=== PATIENT | female | born 1995 | race Caucasian/White ===

== ENCOUNTER 2017-03-27 17:44 | Emergency (ER) | payer MEDICAID ==
[~2017-03-27] VITALS: Ht 172.7 cm; Wt 101.6 kg
--- OUTSIDE RECORDS SUMMARY | 2017-03-27 18:00 | External Medical Summary Rpt | CCD ---
Author Author ASIF Address Unknown Phone Purpose Continuity of Care Document - through 2016
--- OUTSIDE RECORDS SUMMARY | 2017-03-27 18:01 | External Medical Summary Rpt | CCD ---
Demographics Preferred Language Croatian Marital Status Unknown Yazdanism Affiliation Unknown Race Unknown Ethnic Group Unknown Author Author , ASIF MUNOZ Address Unknown Phone Immunization No patient found.
--- OUTSIDE RECORDS SUMMARY | 2017-03-27 18:01 | External Medical Summary Rpt | CCD ---
Demographics Preferred Language Mongolian Marital Status Unknown Latter-Day Affiliation Unknown Race Unknown Ethnic Group Unknown Author Author , ASIF MUNOZ Address Unknown Phone Immunization No patient found.
[2017-03-27 18:09] LABS: URINE BILIRUBIN - DIPSTICK NEGATIVE (NEG); URINE BLOOD NEGATIVE (NEG)
[2017-03-27 18:21] LABS: HEMOGLOBIN 13.7 g/dL (12.2-16.2); LYMPH % 18.9 % (10-50.0)
[2017-03-27 18:42] LABS: AMPHETAMINES/METAMPHETAMINES NEGATIVE ng/mL (<1000)
[2017-03-27 18:46] LABS: URINE SQUAMOUS CELLS OCC #/hpf (0-5)
[2017-03-27 18:52] LABS: BUN 5 mg/dL (7-18); GFR (ESTIMATED) 127 ML/MIN (59-)
[2017-03-27 19:41] VITALS: BP 166/81
--- NOTE | 2017-03-27 19:42 | Emergency Room Report ---
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 N Clinical Suspician of Infection? N Mental Status: 1 - Regular (Normal Baseline) Sepsis Risk:Possible Sepsis Risk Have you (or family members/close friends) recently traveled outside the [place]? N If Yes, where/when: Have you had exposure to infectious disease within the past month? TB? Other? Specify: Source patient, RN notes reviewed, EMS, old records Exam Limitations no limitations Comment pt with multiple c/o of achey and chest pain with no syncope and no known ht disease Cardiac Chest Pain Chest pain indicative of cardiac No Timing/Duration this evening Severity moderate ALLERGIES Uncoded Allergies: CEFCIL (03/27/17) History Medical History General More? Yes Additional hx: BIPOLAR Immunization Hx DT/Tetanus Unknown Surgical Hx Previous Surgery?N CUPOLA CHARGER INSULATION Hx LMP 2 Months Ago Est.Due Date , OB DR , Social History Smoking Hx Smoker: Current Every Day Smoker Tobacco: Yes Type Cigarettes Drugs none Review of Systems All Other Systems Reviewed and Negative Constitutional denies fever Eyes denies drainage ENT denies: ear discharge, epistaxis, throat pain. Respiratory denies cough, denies shortness of breath, denies wheezing Cardiovascular see HPI, denies chest pain, denies palpitations, denies syncope, other Gastrointestinal denies abdominal pain, denies diarrhea, denies vomiting Genitourinary denies: dysuria, frequency, hesitancy, hematuria. Musculoskeletal denies back pain, denies joint pain, denies joint swelling, denies neck pain Skin denies rash Psychiatric/Neurological denies headache, denies seizure Physical Exam Vital Signs Vital Signs Date Time Temp Pulse Resp B/P Pulse O2 O2 Flow FiO2 Ox Delivery Rate 03/27 1915 120 16 158/94 99 03/27 1745 98.7 100 20 135/72 97 - WBC >12,000 or <4,000 or 10% bands? 2 or more SIRS Criteria Met? B/P:166/81 MAP:93 Creatinine >2.0? UA output<0.5ml/kg/hr for 2 hrs? Platelet count >100,000? Lactate >2.0mmol/1? INR >1.2 or PTT > than 60 sec? Evidence of Organ Dysfunction? Provider documented clinical suspician of infection? N Sepsis Criteria Count: 2 Sepsis Risk: Possible Sepsis Risk General Appearance no apparent distress Eye Exam - bilateral eye PERRL, bilateral eye EOMI Ear, Nose, Throat normal ENT inspection Neck supple Respiratory Status No: respiratory distress. Lung Sounds bilateral: lungs clear. Cardiovascular regular rate/rhythm, no gallop, no JVD, no murmur, no rub Peripheral Pulses Pulses normal Yes Gastrointestinal soft Extremities normal inspection Strength 4 Upper Ext (L), 4 Upper Ext (R), 4 Lower Ext (L), 4 Lower Ext (R) Neurologic alert, waterproof material folder [id number] nml as tested, no motor/sensory deficits Reflexes Reflexes normal No Mental status normal mood/affect Skin intact Medical Decision Making LABS/Meds/Orders Pt receiving controlled substance in ED? No Results/Orders Laboratory Tests 03/27/17 1800: Opiates Screen NEGATIVE, Urine Methadone Screen NEGATIVE, Barbiturates NEGATIVE, Phencyclidine Screen NEGATIVE, Amphetamines Screen NEGATIVE, Benzodiazepines Screen NEGATIVE, Cocaine Screen NEGATIVE, Marijuana (THC) Screen NEGATIVE, Urine Color YELLOW, Urine Appearance CLEAR, Urine pH 6.5, Ur Specific [place] <= 1.005 , Urine Protein NEGATIVE, Urine Ketones NEGATIVE, Urine Blood NEGATIVE, Urine Nitrate NEGATIVE, Urine Bilirubin NEGATIVE, Urine Urobilinogen 0.2, Ur Leukocyte Esterase NEGATIVE, Urine RBC NONE, Urine WBC NONE, Ur Squamous Epith Cells OCC, Urine Bacteria NONE, Urine Glucose NEGATIVE 03/27/17 1710: Sodium 138, Potassium 4.1, Chloride 105, Carbon Dioxide 26, BUN 5 L, Creatinine 0.6, Estimated Creat Clear 240 H, Estimated GFR (MDRD) 127, Glucose 92, Calcium 8.7, Total Bilirubin 0.1 L, AST 13 L, ALT 21, Alkaline Phosphatase 69, Creatine Kinase 65, CK-MB (CK-2) Rel Index 0.8, CK and CKMB Interp < 0.5, Troponin I 0.02, Total Protein 7.2, Albumin 3.4, Globulin 3.8 H, Albumin/ Globulin Ratio 0.9 L, WBC 10.5, RBC 4.59, Hgb 13.7, Hct 41.8, MCV 91.1, RDW 13.8, Plt Count 324, MPV 7.2 L, Gran % 73.1, Gran # 7.7, Lymphocytes % 18.9, Monocytes % 5.2, Eosinophils % 2.3, Basophils % 0.4, Lymphocytes # 2.0, Monocytes # 0.6, Eosinophils # 0.2, Basophils # 0.0, PUBS MCHC 32.8, MCH 29.9 Orders Procedure Date/time Status DRUG ABUSE SCREEN (10) 03/27 1801 Complete URINALYSIS/COMPLETE 03/27 1755 Complete URINE 03/27 1755 Complete CBC WITH AUTO DIFF 03/27 1755 Complete CARDIAC ENZYMES 03/27 1755 Complete CHEM 12 PROFILE 03/27 1755 Complete Departure Departure Time of Disposition 1933 Disposition DC Home or Self Care(routine) Clinical Impression Primary Impression: Qualifiers: Weeks of gestation: less than 8 weeks Qualified Code: Z3A.01 - Less than 8 weeks gestation of Condition STABLE Referrals Warren TAO,Krish Rowland MD,Edil Bynum Patient Instructions DI for -- Discomforts and Remedies Additional Instructions call pcp and ob dr for follow up Discharge Counseling Counseled pt/family regarding diagnosis, test results, follow up needs ED Critical Care Critical Care No at 1942
== END 2017-03-27 19:50 | disposition home or self-care (01) ==
LOC: ER 17:44
PROVIDERS: Emergency Medicine
DX: O26.891 Other specified pregnancy related conditions, first trimester (principal); R07.9 Chest pain, unspecified; O99.341 Other mental disorders complicating pregnancy, first trimester; Z3A.01 Less than 8 weeks gestation of pregnancy; F31.9 Bipolar disorder, unspecified